=== PATIENT | female | born 1975 | race Caucasian/White ===

== ENCOUNTER 2019-01-24 12:19 | Emergency (ER) | payer OTHER ==
[~2019-01-24] VITALS: Ht 162.6 cm; Wt 105.0 kg
[2019-01-24 12:28] VITALS: BP 122/72
[2019-01-24] MEDS ORDERED: KETOROLAC 30 MG/1 ML IM ONE (13:00)
[2019-01-24] MEDS ORDERED: OXYcodone/APAP 5/325MG TABLET PO ONE (13:00)
[2019-01-24] MEDS ORDERED: BUPIVACAINE/PF 0.5% INFIL ONE (13:00)
[2019-01-24] MEDS ORDERED: DIAZEPAM 5 MG TABLET PO ONE (13:00)
--- NOTE | 2019-01-24 13:00 | NUR ---
PT HERE WITH NECK PAINX1 WEEK. 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 PT REPORTS SHE SAW A CHIROPRACTOR AND REPORTS THAT IT HAS FLARED UP SINCE THEN. PT MEDICATED PER EMAR. PT RESTING IN BED.
[2019-01-24] MEDS ORDERED: KETOROLAC 30 MG/1 ML ONE (13:26)
[2019-01-24] MEDS ORDERED: BUPIVACAINE 0.25% ONE (13:26)
[2019-01-24] MEDS ORDERED: ONDANSETRON ODT 4 MG ONE (13:26)
[2019-01-24] MEDS ORDERED: OXYcodone/APAP 5/325MG TABLET ONE (13:26)
[2019-01-24] MEDS ORDERED: DIAZEPAM 5 MG TABLET ONE (13:27)
--- NOTE | 2019-01-24 13:44 | NUR ---
Patient/Caregiver given discharge instructions and they have confirmed that they understand the instructions. Patient ambulatory with steady gait.
--- NOTE | 2019-01-24 13:44 | NUR ---
PT MEDICATED PER EMAR.
[2019-01-24] MEDS ORDERED: ONDANSETRON ODT 4 MG PO ONE (14:00)
== END 2019-01-24 14:32 | disposition home or self-care (01) ==
LOC: ED 13:21
DX: S16.1XXA Strain of muscle, fascia and tendon at neck level, initial encounter (principal); M48.02 Spinal stenosis, cervical region; M47.892 Other spondylosis, cervical region; X50.9XXA Other and unspecified overexertion or strenuous movements or postures, initial encounter; Y93.89 Activity, other specified; Y92.89 Other specified places as the place of occurrence of the external cause; Y99.8 Other external cause status
CPT/HCPCS: 20552; 72050; 93005; 96372; 99284; J1885; Q0162